=== PATIENT | female | born 1970 | race Caucasian/White ===

== ENCOUNTER → 2017-09-28 17:27 | Outpatient (CLI) | payer OTHER | END | disposition home or self-care (01) | LOC: D.MAMMO 16:00 | DX: Z12.31 Encounter for screening mammogram for malignant neoplasm of breast (principal) ==

== ENCOUNTER → 2019-08-15 08:56 | Outpatient (CLI) | payer OTHER | END | disposition home or self-care (01) | LOC: D.RAD 08:56 | PROVIDERS: ATTEND Family Medicine | DX: R13.19 Other dysphagia (principal) ==

== ENCOUNTER 2019-10-11 08:55 | Outpatient (CLI) | payer OTHER ==
--- NOTE | 2019-10-11 10:28 | NUR ---
DR MORALES NOTIFIED AND REVIEWED PT'S BHEAVIOR AND ASSESSMENT. PT IS A LOW RISK. RESOURCES GIVEN AND SHE VERBALIZES UNDERSTANDING.
--- NOTE | 2019-10-11 13:15 | NUR ---
1040 MONOMETRY COMPLETED. SUICIDE SCREENING COMPLETED BY . RESOURCES GIVEN. DC'D HOME. NO S/S OF ACUTE DISTRESS NOTED.
== END 2019-10-11 10:40 | disposition home or self-care (01) ==
LOC: D.OPS 08:55
PROVIDERS: ATTEND Surgery
DX: K22.2 Esophageal obstruction (principal)

== ENCOUNTER 2019-10-17 05:48 | Inpatient (IN) | payer OTHER ==
[2019-10-17] VITALS (14 sets, daily range): BP systolic 121–158; BP diastolic 75–93; Ht 162.6 cm; Wt 72.7 kg
[~2019-10-17] VITALS: Ht 162.6 cm; Wt 72.7 kg
[~2019-10-17 05:48] MED LIST: AMBIEN10 MG PO; ESTRACE 0.5 MG0.5 MG PO; LIPITOR40 MG PO; PRISTIQ100 MG PO; TIROSINT50 MCG PO
[2019-10-17 06:05] LABS: HEMATOCRIT 40.7 % (36.0-48.0); HEMOGLOBIN 12.8 g/dL (12-16); MCH 28.8 pg (26.0-34.0); MCHC 31.4 g/dL (31.0-37.0); MCV 91.7 fL (80.0-100.0); MEAN PLATELET VOLUME 9.4 fL (7.4-10.4); RBC 4.44 10x6/uL (4.00-5.40); RDW 13.2 % (11.5-14.5); WBC 7.1 10x3/uL (4.8-10.8)
[2019-10-17] MEDS ORDERED: GABAPENTIN100 MG PO (06:24)
[2019-10-17] MEDS ORDERED: PROTONIX FOR OR40 MG PT (06:24)
[2019-10-17] MEDS ORDERED: ZANAFLEX4 MG PO (06:25)
--- NOTE | 2019-10-17 07:03 | NUR ---
NOTIFIED CHARGE NURSE OF ASSESSMENT RESULTS. DR. MORALES NOTIFIED OF BEHAVIOR AND ASSESSMENT RESULTS. PT IS A LOW RISK PER DR. MORALES. DR. MORALES STATED TO GIVE RESOURCES AT TIME OF DISCHARGE. NO FURTHER ORDERS AT THIS TIME. RESOURCES REVIEWED WITH PT AND SHE VERBALIZED UNDERSTANDING.
--- NOTE | 2019-10-17 08:54 | NUR ---
SUJATHA REF [id number] LOT [id number] EXP 02/17/2024
--- NOTE | 2019-10-17 11:10 | NUR ---
FROM THE RR, SLEEPY, BUT AROUSES TO MY VOICE. HAS 4 LAP SITES - CLEAN, DRY INTACT.
--- NOTE | 2019-10-17 19:00 | NUR ---
BEDSIDE REPORT RECEIVED AND CARE OF PT ASSUMED. PT LYING IN SUPINE LOW RAO'S POSITION WATCHING TV. IV TO LEFT HAND PATENT WITH LR INFUSING AT 100 ML/HR. 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 X4 LAP SITES WELL APPROXIMATED WITH NO BLEEDING OR DRAINAGE. SCD'S IN USE ON BLE.
--- NOTE | 2019-10-17 20:20 | NUR ---
RECEIVED ORDER FROM MD TO RESTART AMBIEN 10 MG PO QHS PER PT'S HOME MEDS, PER PT REQUEST.
--- NOTE | 2019-10-17 20:30 | NUR ---
PROVIDED PT WITH TOILETRIES FOR HER TO PERFORM SPONGE BATH AND ORAL CARE.
--- NOTE | 2019-10-17 21:06 | NUR ---
HS MEDICATIONS GIVEN. WILL CONTINUE TO MONITOR FOR NEEDS.
[2019-10-18 05:30] LABS: BASOPHILS 0.1 % (0-2); EOSINOPHILS 0.1 % (0-7); HEMATOCRIT 41.8 % (36.0-48.0); HEMOGLOBIN 13.1 g/dL (12-16); IMMATURE GRANULOCYTES 0.3 % (0-5); LYMPHOCYTES 8.6 % (15-50); MCH 28.8 pg (26.0-34.0); MCHC 31.3 g/dL (31.0-37.0); MCV 91.9 fL (80.0-100.0); MEAN PLATELET VOLUME 10.1 fL (7.4-10.4); MONOCYTES 8.7 % (2-11); NEUTROPHILS 82.2 % (40-80); RBC 4.55 10x6/uL (4.00-5.40); RDW 13.3 % (11.5-14.5)
[2019-10-18 05:49] LABS: PLATELET COUNT 257 10x3/uL (130-400); WBC 15.4 10x3/uL (4.8-10.8)
[2019-10-18 06:11] LABS: ALBUMIN 3.8 g/dL (3.4-5.0); ANION GAP 16.5 mmol/L (8-16); BILIRUBIN - TOTAL 0.56 mg/dL (0.2-1.3); CALCIUM 8.6 mg/dL (8.5-10.1); CARBON DIOXIDE 26.9 mmol/L (21.0-32.0); POTASSIUM - SERUM 3.4 mmol/L (3.5-5.1); PROTEIN - SERUM 7.4 g/dL (6.4-8.2)
[2019-10-18 06:31] VITALS: BP 118/67
--- NOTE | 2019-10-18 07:30 | NUR ---
SHE DOES NOT WANT TO TAKE OUR MEDICINE'S. SHE IS WALKING AROUND IN THE ROOM. LAP SITES- CLEANM, DRY INTACT.
[2019-10-18] MEDS ORDERED: ZOFRAN4 MG PO (08:38)
[2019-10-18] MEDS ORDERED: HYDROCODON-ACE1 EAC7 PO (08:38)
[2019-10-18 08:48] VITALS: BP 138/83
--- NOTE | 2019-10-18 10:49 | NUR ---
THE IV WAS REMOVED, THE DISCHARGE INSTRUCTIONS WAS EXPLAINED AND QUESTIONS ANSWERED. SHE WAS TAKEN TO THE ER VIA WHEELCHAIR.
--- NOTE | 2019-10-18 22:03 | MORECARE ---
CASE MANAGEMENT DISCHARGE SUMMARY PATIENT: TRICIA LIMA JENNIFER UNIT: [id number] ADM DATE: 10/17/19 AGE: 49 : 66 SEX: F ROOM/BED: D.2233 AUTHOR: SHERWIN SNYDER PHYSICIAN: REFERRING PHYSICIAN: LINDSEY MANZO MD DATE OF SERVICE: 10/18/19 Discharge Plan Patient Name: TRICIA LIMA [facility] [facility] 1970 Planned Disposition: Anticipated Discharge Date: Discharge Date: 10/18/2019 Expected LOS: Initial Reviewer: [email or web address] Initial Review Date: 10/18/2019 Generated: 10/18/19 11:02 pm Patient Name: TRICIA LIMA Page [id number] at 2203 All edits/amendments must be made on the electronic document DICTATION DATE: 10/18/192201 SHOP ESTIMATOR: ISAIAH 10/18/192201 RPT#: [id number] DC DATE:10/18/19 STATUS: DIS IN [facility] [address] [place] [address] END OF REPORT
== END 2019-10-18 10:51 | disposition home or self-care (01) | DRG 328 ==
LOC: D.PAN 05:48 → D.OPS 08:00 → D.PAN 08:00 → D.MS 10:05 → D.PAN 10:06 → D.MS 10:06
PROVIDERS: Anesthesiology; ADMIT Surgery; ATTEND Surgery
PROC: 0DV44ZZ Restriction of Esophagogastric Junction, Percutaneous Endoscopic Approach (ICD-10-PCS; principal; 2019-10-17 08:00)
PROC: 0BQT4ZZ Repair Diaphragm, Percutaneous Endoscopic Approach (ICD-10-PCS; 2019-10-17 08:00)
PROC: 0D758ZZ Dilation of Esophagus, Via Natural or Artificial Opening Endoscopic (ICD-10-PCS; 2019-10-17 08:00)
DX: K21.0 Gastro-esophageal reflux disease with esophagitis (principal); K22.2 Esophageal obstruction; K44.9 Diaphragmatic hernia without obstruction or gangrene